=== PATIENT | male | born 1970 | race Two or more races ===

== ENCOUNTER 2017-02-04 17:45 | Emergency (ER) | payer OTHER ==
--- NOTE | 2017-02-04 18:00 | PDOC ---
Rapid Medical Evaluation Time Seen by Provider: 02/04/17 17:48 Medical Evaluation: Allergies Allergy/AdvReac Type Severity Reaction Status Date / Time No Known Allergies Allergy Unverified 02/04/17 17:47 02/04/17 17:49 I have performed a brief in-person evaluation of this patient. The patient presents with a chief complaint of:left temporal veins swelling Pertinent physical exam findings: Left temporal veins swelling without pain. The patient will proceed to the ED for further evaluation. PMD: Dr. Michel Madrigal [phone] IF admission is necessary, please call DR. Sulma Donaldson [phone]/ [phone] 1750hrs: Spoke to Dr. Wendy Madrigal/ pt's PMD. Pt presented to his office today c/o left temporal forehead vein swelling with slight swelling.left ear redness since yesterday. PMD called Dr. Donaldson (in case pt needs to be admitted). Pt denies any injuries/bug bite. Pt denies dizziness/lightheadedness, wweakness , fatigue, fever, loss of appetite, temporary vision loss, hu, jaw pain. Will obtain cbc/diff/, chem, esr rate Pt presents with rx from PMD: States: Left Facial Prominent Vein/swelling/numbness (phlebitis)/left eye. Probable call Sulma Donaldson for admission.
[2017-02-04 18:02] VITALS: BMI 29.0
[2017-02-04 18:18] LABS: BASOPHIL 0.7 % (0-2.0); EOSINOPHIL 1.7 % (0-4.5); MCH 28.9 pg (25.7-33.7); MCHC 33.6 g/dl (32.0-35.9); MEAN CELL VOLUME 86.1 fl (80-96); MEAN PLT VOLUME 9.2 fl (7.5-11.1); NEUTROPHILS 55.8 % (42.8-82.8); PLATELET COUNT 226 K/MM3 (134-434); RDW 13.1 % (11.9-15.9); WHITE BLOOD COUNT 5.9 K/mm3 (4.0-10.0)
[2017-02-04 18:53] LABS: ALBUMIN 4.1 g/dl (3.4-5.0); ANION GAP 7 (8-16); CALCIUM 8.9 mg/dL (8.5-10.1); CO2 27 mmol/L (21-32); CREATININE 0.9 mg/dL (0.7-1.3); GLUCOSE,RANDOM 92 mg/dL (74-106); SGOT/AST 19 U/L (15-37); SGPT/ALT 29 U/L (12-78)
[2017-02-04 18:54] LABS: ALK PHOS 82 U/L (45-117); BILIRUBIN,TOTAL 0.6 mg/dL (0.2-1.0); TOT PROT 7.2 g/dl (6.4-8.2)
--- NOTE | 2017-02-04 19:36 | PDOC ---
History of Present Illness - General History Source: Patient Exam Limitations: No Limitations - History of Present Illness Initial Comments: 02/04/17 19:44 The patient is a 46 year old male with no significant past medical history who presents to the ED for 2 days of left temporal vein swelling. Patient reports he was in his usual state of health when he woke up 2 days ago and noted swelling over the left temporal vein region. Denies any pain to the area, headache, or changes in vision. States he was doing some heavy lifting a few days ago. Denies any injuries, bug bite, or fluid/chemical exposure. No alleviating or exacerbating factors. Denies any sick contacts or recent travels. The patient denies fever, chills, cough, SOB, chest pain, and palpitations. The patient denies abdominal pain, nausea, vomiting, and diarrhea. Allergies: NKDA Social History: No alcohol, tobacco, or drug use reported. Past Surgical History: None reported PCP: Dr. Michel Madrigal <Sangeetha Ram - Last Filed: 02/04/17 19:44> - General History Source: Patient <GeraEmeka belle - Last Filed: 02/04/17 20:43> - General Chief Complaint: Pain Stated Complaint: PCP SENT Time Seen by Provider: 02/04/17 17:48 Past History <Sangeetha Ram - Last Filed: 02/04/17 19:44> - Past Medical History Kidney Stones: Yes Other medical history: NONE - Psycho/Social/Smoking Cessation Hx Anxiety: No Suicidal Ideation: No Smoking History: Never smoked Have you smoked in the past 12 months: No Information on smoking cessation initiated: No Hx Alcohol Use: No Drug/Substance Use Hx: No Substance Use Type: None <Emeka Bolden - Last Filed: 02/04/17 20:43> - Past Medical History Allergies/Adverse Reactions: Allergies Allergy/AdvReac Type Severity Reaction Status Date / Time No Known Allergies Allergy Verified 02/04/17 20:05 Home Medications: Ambulatory Orders NK [No Known Home Medication] 02/04/17 Review of Systems - Review of Systems Able to Perform ROS?: Yes Comments:: 02/04/17 19:44 CONSTITUTIONAL: Absent: fever, no chills, no fatigue HEENT: +left temporal vein swelling Absent: visual changes, ear pain, no sore throat CARDIOVASCULAR: Absent: chest pain, no palpitations RESPIRATORY: Absent: cough, no SOB GI: Absent: abdominal pain, no nausea, no vomiting, no constipation, no diarrhea GENITOURINARY: Absent: dysuria, no frequency, no hematuria MUSCULOSKELETAL: Absent: back pain, no arthralgia, no myalgia SKIN: Absent: rash NEURO: Absent: headache <Sangeetha Ram - Last Filed: 02/04/17 19:44> *Physical Exam - Vital Signs Last Vital Signs Temp Pulse Resp BP Pulse Ox 98.0 F 83 18 136/75 100 02/04/17 17:49 02/04/17 17:49 02/04/17 17:49 02/04/17 17:49 02/04/17 19:36 - Physical Exam Comments: 02/04/17 19:44 GENERAL: Well-appearing, well-nourished. No apparent distress. HEENT: Normocephalic, atraumatic. PERRLA, EOMI. No conjunctival pallor. Sclera are non- icteric. Moist mucous membranes. Oropharynx is clear. CARDIOVASCULAR: Normal S1, S2. Regular rate and rhythm. PULMONARY: Clear to auscultation bilaterally. ABDOMEN: Soft, non-distended, non-tender. EXTREMITIES: Normal ROM in all four extremities. No gross deformities. SKIN: Warm, dry. No rash NEUROLOGICAL: No focal neurological deficits. <Sangeetha Ram - Last Filed: 02/04/17 19:44> - Vital Signs Last Vital Signs Temp Pulse Resp BP Pulse Ox 98.0 F 83 18 136/75 100 02/04/17 17:49 02/04/17 17:49 02/04/17 17:49 02/04/17 17:49 02/04/17 17:49 <Emeka Bolden - Last Filed: 02/04/17 20:43> ED Treatment Course - LABORATORY CBC & Chemistry Diagram: 02/04/17 18:08 02/04/17 18:08 - ADDITIONAL ORDERS Additional order review: Laboratory Results 02/04/17 18:08 Sodium 137 Potassium 4.0 Chloride 103 Carbon Dioxide 27 Anion Gap 7 L BUN 21 H Creatinine 0.9 Creat Clearance w eGFR > 60 Random Glucose 92 Calcium 8.9 Total Bilirubin 0.6 AST 19 ALT 29 Alkaline Phosphatase 82 Total Protein 7.2 Albumin 4.1 02/04/17 18:08 RBC 5.27 MCV 86.1 MCHC 33.6 RDW 13.1 MPV 9.2 Neutrophils % 55.8 Lymphocytes % 34.5 Monocytes % 7.3 Eosinophils % 1.7 Basophils % 0.7 <Sangeetha Ram - Last Filed: 02/04/17 19:44> - LABORATORY CBC & Chemistry Diagram: 02/04/17 18:08 02/04/17 18:08 - ADDITIONAL ORDERS Additional order review: Laboratory Results 02/04/17 18:08 Sodium 137 Potassium 4.0 Chloride 103 Carbon Dioxide 27 Anion Gap 7 L BUN 21 H Creatinine 0.9 Creat Clearance w eGFR > 60 Random Glucose 92 Calcium 8.9 Total Bilirubin 0.6 AST 19 ALT 29 Alkaline Phosphatase 82 Total Protein 7.2 Albumin 4.1 02/04/17 18:08 RBC 5.27 MCV 86.1 MCHC 33.6 RDW 13.1 MPV 9.2 Neutrophils % 55.8 Lymphocytes % 34.5 Monocytes % 7.3 Eosinophils % 1.7 Basophils % 0.7 - RADIOLOGY Radiology Studies Ordered: Category Date Time Status HEAD CT WITHOUT CONTRAST [CT] Stat CT Scan 02/04/17 19:36 Ordered <Emeka Bolden - Last Filed: 02/04/17 20:43> Medical Decision Making - Medical Decision Making 02/04/17 20:42 Dr. Bolden: The scribe's documentation has been prepared under my direction and personally reviewed by me in its entirery. I confirm that the note above accurately reflects all work, treatment, procedures, and medical decision making performed by me. <Emeka Bolden - Last Filed: 02/04/17 20:43> *DC/Admit/Observation/Transfer - Attestations Scribe Attestion: 02/04/17 19:44 Documentation prepared by Sangeteha Ram, acting as medical transcription supervisor for Emeka Bolden MD/DO. <Sangeetha Ram - Last Filed: 02/04/17 19:44> - Discharge Dispostion Admit: No <Emeka Bolden - Last Filed: 02/04/17 20:43> Diagnosis at time of Disposition: Headache Qualifiers: Headache type: unspecified Headache chronicity pattern: unspecified pattern Intractability: not intractable Qualified Code(s): R51 - Headache - Discharge Dispostion Disposition: HOME Condition at time of disposition: Stable - Referrals Referrals: Michel Madrigal MD [Primary Care Provider] - - Patient Instructions Printed Discharge Instructions: DI for Headache Additional Instructions: Please follow up with your doctor for further work up.
[2017-02-04 20:58] VITALS: BP 134/76; PULSE 80; TEMP 98
== END 2017-02-04 20:58 | disposition home or self-care (01) ==
LOC: JER 17:45
DX: R51 Headache (principal); Z87.442 Personal history of urinary calculi
CPT/HCPCS: 36415; 70450-TC; 80053; 85025; 85651; 99282-25